=== PATIENT | female | born 1970 | race Caucasian/White ===

== ENCOUNTER → 2017-02-15 | Outpatient (CLI) | payer OTHER ==
[~2017-02-15] MED LIST: INTB30 IM; MULT-513 PO; NORGTAB36 PO
--- NOTE | 2017-02-15 07:18 | DIAGNOSTIC IMAGING REPORT ---
MRI LEFT KNEE NO CONTRAST CLINICAL HISTORY: Left knee pain and instability COMPARISON STUDY: Conventional radiographic study dated 01/03/2017 FINDINGS: Imaging was performed in the axial, sagittal, and coronal planes. There are no areas of marrow edema to indicate occult fracture or bone bruise. The patellar and quadriceps tendons appear intact. The medial and lateral collateral ligaments appear intact. Anterior posterior crucial ligaments appear intact. There is a small popliteal cyst. There is a small ossicle at the level the superior patellar pole. This is felt to be old. There is chondromalacia patella. There is subchondral marrow edema within the patella, likely degenerative. No meniscal tears are visualized. There are mild degenerative changes present within the medial lateral joint compartments with mild osteophytic spurring. IMPRESSION: 1. No evidence of cruciate or collateral ligament disruption 2. No evidence of meniscal tear 3. Arthritic changes, most pronounced within the patellofemoral joint 4. Popliteal cyst Electronically signed by: Chicho Wolfe M.D. 02/15/2017 7:17 AM Dictated Date/Time: 02/15/2017 7:12 AM
== END | disposition home or self-care (01) ==
LOC: C.MRI 06:09
PROVIDERS: ATTEND Family Medicine
DX: M25.562 Pain in left knee (principal); M25.362 Other instability, left knee; M71.22 Synovial cyst of popliteal space [Baker], left knee

== ENCOUNTER → 2017-03-27 | Outpatient (CLI) | payer OTHER | END | disposition home or self-care (01) | LOC: C.RDSM 12:16 | PROVIDERS: ATTEND Physical Medicine & Rehabilitation Sports Medicine | DX: M25.562 Pain in left knee (principal); M25.551 Pain in right hip; M25.552 Pain in left hip ==